=== PATIENT | female | born 1955 | race Caucasian/White ===

== ENCOUNTER → 2017-11-10 | Outpatient (CLI) | payer OTHER ==
[2016-08-23 10:40] VITALS: BP 136/68
[~2017-11-10] MED LIST: ASPI-630 PO; ASPI325T8 PO; CARV12.52 PO; FLUC150T PO; HYDR12.53 PO; INSU100C4 SQ; INSU100V8 SQ; LISI1TAB5 PO; NITR100C62 PO; RANI150C PO
--- NOTE | 2017-11-11 13:42 | RAD ---
History: Routine Screening. Technique: Bilateral digital mammographic routine views were obtained with CAD - computer aided detection. Comparison: 05/17/2010, 11/13/2009, 11/05/2009, 11/05/2004 Findings: Breast Tissue Density A : The breast tissue is predominately fatty replaced. There are no suspicious masses, microcalcifications or areas of architectural distortion. A focal asymmetry in the upper, outer right breast is stable to at least 11/05/2009. Impression: Negative mammogram. BI-RADS Category 2: Benign. Recommendation: In the absence of new clinical symptoms or change in physical exam, annual screening mammography is recommended. A mammogram does not have 100% sensitivity and therefore a negative imaging study should not delay further work up of a suspicious abnormality. The patient will receive a letter with the results in the mail. Patient information is entered into the reminder system with a target due date for the next screening mammogram. The patient will receive a reminder. "Our facility is accredited by the [employer] Mammography [employer]."
== END | disposition home or self-care (01) ==
LOC: MAMMO 15:21
PROVIDERS: ATTEND Family Medicine
DX: Z12.31 Encounter for screening mammogram for malignant neoplasm of breast (principal); I11.0 Hypertensive heart disease with heart failure; I50.9 Heart failure, unspecified; E11.9 Type 2 diabetes mellitus without complications; I25.10 Atherosclerotic heart disease of native coronary artery without angina pectoris; K21.9 Gastro-esophageal reflux disease without esophagitis; Z87.891 Personal history of nicotine dependence
CPT/HCPCS: 77067

== ENCOUNTER → 2019-04-08 | Outpatient (CLI) | payer OTHER, MEDICAID ==
[2016-08-23 10:40] VITALS: BP 136/68
[~2019-04-08] MED LIST changes: +CARV12.511 PO; -CARV12.52 PO; -HYDR12.53 PO; +HYDR12.575 PO; +LISI1TAB19 PO; -LISI1TAB5 PO
--- NOTE | 2019-04-08 15:33 | RAD ---
Bilateral lower extremity arterial ultrasound History: Poor circulation in extremities, diabetes, cold feet Findings: Multiple grayscale, color, and duplex spectral analysis sonographic images were acquired of the lower extremity arteries bilaterally. There are no previous similar exams. No vessel occlusion is demonstrated. However there are mostly biphasic waveforms bilaterally other than monophasic waveforms of the distal posterior tibial arteries bilaterally. There is scattered plaque. There are apparently some collateral vessels in the region of the superficial femoral arteries bilaterally. There are more elevated velocities in the common femoral arteries greater on the right, left popliteal artery, and right peroneal artery. Velocities in cm/sec: RIGHT Common femoral artery 231 Profunda femoris artery 162 Proximal SFA 134 Mid SFA 125 Distal SFA 102 Popliteal artery 139 Posterior tibial artery 98 proximally and 45 distally Peroneal artery 180 Anterior tibial artery 34 Dorsalis pedis artery 73 LEFT: Common femoral artery 165 Profunda femoris artery 53 Proximal SFA 120 Mid SFA 90 Distal SFA 92 Popliteal artery 210 Posterior tibial artery 70 proximally and 27 distally Peroneal artery 61 Anterior tibial artery 75 Dorsalis pedis artery 69 Impression: 1. No vessel occlusion is demonstrated. However there are greater velocities such as of the common femoral arteries greater on the right which may be due to more proximal stenoses. There are also elevated velocities of the left popliteal artery and right peroneal artery which may be due to underlying stenoses. There is scattered plaque. There are some collateral vessels in the region of the superficial femoral arteries bilaterally. Electronically signed by: Omid Porter MD (04/08/2019 3:30 PM) [id number]
== END | disposition home or self-care (01) ==
LOC: US 13:59
PROVIDERS: ATTEND Family Medicine
DX: I70.293 Other atherosclerosis of native arteries of extremities, bilateral legs (principal)
CPT/HCPCS: 93925

== ENCOUNTER → 2019-04-13 | Outpatient (CLI) | payer OTHER, MEDICAID ==
[2016-08-23 10:40] VITALS: BP 136/68
--- NOTE | 2019-04-13 19:08 | RAD ---
History: Routine Screening. Technique: Bilateral digital mammographic routine views were obtained with CAD - computer aided detection. Comparison: November 10, 2017. Findings: Breast Tissue Density A : The breast tissue is predominately fatty replaced. There are no suspicious masses, microcalcifications or areas of architectural distortion. Impression: Negative mammogram. BI-RADS Category 1: Negative. Normal interval followup. . A mammogram does not have 100% sensitivity and therefore a negative imaging study should not delay further work up of a suspicious abnormality. The patient will receive a letter with the results in the mail. Patient information is entered into the reminder system with a target due date for the next screening mammogram. The patient will receive a reminder. "Our facility is accredited by the [employer] Mammography [employer]." BI-RADS 1 -- negative findings (within normal)
== END | disposition home or self-care (01) ==
LOC: MAMMO 14:18
PROVIDERS: ATTEND Family Medicine
DX: Z12.31 Encounter for screening mammogram for malignant neoplasm of breast (principal)
CPT/HCPCS: 77067

== ENCOUNTER 2021-05-15 14:49 | Inpatient (IN) | payer OTHER, MEDICAID ==
[~2021-05-15] VITALS: Ht 152.4 cm; Wt 127.5 kg
[~2021-05-15 14:49] MED LIST changes: -LISI1TAB19 PO; +LISI1TAB37 PO
--- NOTE | 2021-05-15 15:00 | PHYS DOC ---
Past Medical History Past Medical History: Diabetes-Type II, Hypertension, [place], Stroke, Other Additional Past Medical Histor: LUPUS Past Surgical History: Hysterectomy, Other Additional Past Surgical Histo: CARDIAC CATH Smoking Status: Current Every Day Smoker Alcohol Use: None Drug Use: None General Adult EDM: Chief Complaint: LOWER EXT PAIN HPI: HPI: Patient is a 66 year old female who presents with multiple, vague complaints. She is an incredibly poor historian. She was sent here by EMS from her primary care physician's office. Her primary care doctor was concerned about "urosepsis.", Currently the patient had some hypotension in the office, she is not manifesting hypotension here. The patient has not seen Dr. Rodriguez in over a year. She presented for evaluation of her chronic health conditions, multiple open wounds and pick mckeon on her body, follow-up for reported "lupus" which was diagnosed at [facility] sometime ago, as well as follow-up for her diabetes mellitus. The patient does not mention this, but her reports for the past couple of nights the patient seems to have had abnormal "shaking episodes" where and the patient's thought she was having seizures. It is unclear if these were tonic-clonic movements, it is unknown if she lost co nsciousness, it is unknown if she sustained any trauma or injury during these times. The patient does not recall these episodes. Her reports for several months, almost a year, she has had progressively worsening memory problems and forgetfulness. No reported fall, head injury reported. No reported syncope. The patient denies chest pain, cough, dyspnea, Jose J pain, nausea, vomiting. She has some chronic urinary incontinence and urgency, unchanged currently. She reports that she is unable to walk, has not been on a walk for several days. She normally ambulates on her own, per her report but she has been lying in bed for the last several days. She has multiple scratch mckeon and wounds on her abdomen, back, neck and arms and legs, and she reports that she intentionally picks and scratches at these. She is unable to bathe herself, she is unable to reach her feet to groom her toenails, she is not able to change her clothing without help of her . She indicates that her does not feel that he is able to assist with ADLs. Review of Systems: Review of Systems: Constitutional: Denies fever or chills. [] Eyes: Denies change in visual acuity. [] HENT: Denies nasal congestion or sore throat. [] Respiratory: Denies cough or shortness of breath. [] Cardiovascular: Denies chest pain or edema. [] GI: Denies abdominal pain, nausea, vomiting, diarrhea : Denies dysuria. [] Musculoskeletal: Denies back pain or joint pain. [] Integument: Multiple scabs, multiple wounds and abrasions Neurologic: Denies headache, focal weakness, numbness or tingling. Forgetfulness. No loss of consciousness, no head injury. Seizure activity reported by the patient's . Psychiatric: Anxiety Heart Score: C/O Chest Pain: No Risk Factors: Risk Factors: DM, Current or recent (<one month) smoker, HTN, HLP, family history of CAD, obesity. Risk Scores: Score 0 - 3: 2.5% MACE over next 6 weeks - Discharge Home Score 4 - 6: 20.3% MACE over next 6 weeks - Admit for Clinical Observation Score 7 - 10: 72.7% MACE over next 6 weeks - Early Invasive Strategies Allergies: Allergies: Allergies Coded Allergies Type Severity Reaction Last Updated Verified Sulfa (Sulfonamide Antibiotics) Allergy Severe Rash 08/22/16 Yes Iodinated Contrast Media Allergy Intermediate 01/14/14 Yes lisinopril Adverse Reaction Severe Anaphylaxis 08/22/16 Yes codeine Adverse Reaction Intermediate Nausea and Vomiting 08/22/16 Yes Physical Exam: PE: Constitutional: Well developed, well nourished, no acute distress, appears older than stated age. She is chronically ill-appearing. She is disheveled, malodorous. HENT: Normocephalic, atraumatic, oropharynx is patent and clear, poor dentition, mucous membranes are moist, TMs are clear bilaterally, nares are patent without rhinorrhea epistaxis. Eyes: PERRL, EOMI, conjunctiva normal, no discharge. No nystagmus. No scleral icterus. Neck: Normal range of motion, no tenderness, supple, no stridor. Achy midline, no meningismus. Cardiovascular:Heart rate regular rhythm, +2 radial and +2 posterior tibial pulses bilaterally Lungs & Thorax: Bilateral breath sounds clear to auscultation [] Abdomen: Abdomen is obese, soft, nondistended, no palpable pulsatile mass, mu ltiple scratches and abrasions on the abdominal wall. No tenderness to palpation. Skin: Multiple scabs, linear, circular abrasions and pick mckeon noted on the patient's face, neck, chest, abdomen, arms and legs. No purulence, no fluc tuance, no drainage, no bleeding, no erythema, no tenderness. Back: No tenderness, no deformity. Extremities: No tenderness, no cyanosis, no clubbing, ROM intact, bilateral lower extremity, symmetric nonpitting edema. Fuhs lower extremity soft tissue tenderness. Compartments are soft. No pain or tenderness out of proportion to exam. Neurologic: She is awake, alert, oriented to person, place, and she does not know the year. She gets confused answers incorrectly regarding her date of . She follows commands. No facial asymmetry, cranial nerves II through XII grossly intact. She has bilateral symmetric guyline operator strength. Sensation is grossly intact. Unable to ambulate. No obvious limb ataxia. Speech is fluent. Psychologic: Affect is bizarre, she is anxious, she is cooperative and pleasant. EKG: EKG: EKG is interpreted at 1626 Rhythm is sinus Rate is 59 bpm [place] is left No STEMI Radiology/Procedures: Radiology/Procedures: IMAGING REPORT Signed PATIENT: SERGEY REED SACCOUNT: [id number] : 1955 LOCATION: ER AGE: 66 SEX: F EXAM STATUS: REG ER ORD. PHYSICIAN: CHARANJIT TANNER DO REASON: LE pain, swelling PROCEDURE: VENOUS LOWER EXT BILATERAL EXAM: Bilateral lower extremity venous Doppler sonogram. HISTORY: Pain and swelling. TECHNIQUE: Mc scale and color Doppler sonographic evaluation of the bilateral lower extremity veins with spectral waveform analysis was performed. FINDINGS: The exam is limited due to body habitus. The superficial femoral veins are mildly obscured. The posterior tibial veins are completely excluded. There is normal color flow, normal compressibility and there are normal spectral waveforms in the common femoral, popliteal and greater saphenous veins. IMPRESSION: Significantly limited exam due to body habitus. The superficial femoral veins are predominantly obscured and the posterior tibial veins are completely obscured. There is no venous thrombosis within the remainder of the visualized veins. Electronically signed by: Maribell Collado MD (05/15/2021 4:31 PM) [id number] DICTATED and SIGNED BY: MARIBELL COLLADO MD DATE: 05/15/21 [id number] 0 IMAGING REPORT Signed PATIENT: SERGEY REED: [id number] : 1955 LOCATION: ER AGE: 66 SEX: F EXAM STATUS: REG ER ORD. PHYSICIAN: CHARANJIT TANNER DO REASON: weakness PROCEDURE: CT HEAD WO CONTRAST EXAM: Head CT without contrast. HISTORY: Weakness. TECHNIQUE: Computed tomographic images of the head were obtained without contrast. *One or more of the following individualized dose reduction techniques were utilized for this examination: 1. Automated exposure control. 2. Adjustment of the mA and/or kV according to patient size. 3. Use of iterative reconstruction technique. COMPARISON: None. FINDINGS: There is no acute or subacute extra-axial or intraparenchymal hemorrhage. There is no mass effect or midline shift. There is no hydrocephalus. There are areas of decreased attenuation within the cerebral white matter, nonspecific and likely related to chronic small vessel disease. There are small chronic infarct within the left caudate nucleus and putamen. The visualized portions of the orbits, paranasal sinuses and mastoid air cells are unremarkable. No suspicious calvarial lesion is seen. IMPRESSION: 1. No acute intracranial finding. MRI is more sensitive for acute infarction. 2. Bilateral cerebral white matter changes, likely due to chronic small vessel disease. 3. Small chronic infarcts within the left basal ganglia. Electronically signed by: Maribell Collado MD (05/15/2021 3:50 PM) [id number] DICTATED and SIGNED BY: MARIBELL COLLADO MD DATE: 05/15/21 [id number] 0 IMAGING REPORT Signed PATIENT: SERGEY REED: [id number] : 1955 LOCATION: ER AGE: 66 SEX: F EXAM STATUS: REG ER ORD. PHYSICIAN: CHARANJIT TANNER DO REASON: weakness PROCEDURE: PORTABLE CHEST 1V EXAM: Chest, single view. HISTORY: Weakness COMPARISON: 08/20/2016 FINDINGS: A frontal view of the chest is obtained. There is no infiltrate, pleural effusion or pneumothorax. There is a stable prominent cardiac silhouette. IMPRESSION: No acute pulmonary finding. Electronically signed by: Maribell Collado MD (05/15/2021 3:57 PM) [id number] DICTATED and SIGNED BY: MARIBELL COLLADO MD DATE: 05/15/21 [id number] 0 Course & Med Decision Making: Course & Med Decision Making Pertinent Labs and Imaging studies reviewed. (See chart for details) I discussed the findings, differential diagnosis and plan of care with the patient. It took several hours to obtain blood work, thus the delay in definitive disposition placement. Imaging studies are unremarkable. She does not appear to be clinically septic, blood pressure has been stable. She has no physical complaints other than feeling like her legs are weak and painful. No DVT noted on ultrasound. CT head is unremarkable. She does appear to be persistently can confused, and she forgets multiple conversations have had with her when I enter her room and discussed the findings. I explained my recommendation for admission, explained this to the patient's as well as to the patient. She is comfortable with this plan. She is excepted for admission by Dr. Martinez. Ana Disclaimer: Ana Disclaimer: This electronic medical record was generated, in whole or in part, using a voice recognition dictation system. Departure Departure Impression: Primary Impression: Generalized weakness Additional Impressions: Failure to thrive Multiple wounds of skin Memory loss Unable to ambulate Disposition: ADMITTED INPATIENT Admitting Physician: ROZINA (Dr. Martinez) Condition: STABLE Referrals: PAVAN GRADY MD (PCP) CHARANJIT TANNER DO May 15, 2021 15:00
[2021-05-15] MEDS ORDERED: IV NORMAL SALINE 1000ML BAG 1,000 ML IV ONE ×2 (15:15→19:15)
--- NOTE | 2021-05-15 15:53 | RAD ---
EXAM: Head CT without contrast. HISTORY: Weakness. TECHNIQUE: Computed tomographic images of the head were obtained without contrast. *One or more of the following individualized dose reduction techniques were utilized for this examina tion: 1. Automated exposure control. 2. Adjustment of the mA and/or kV according to patient size. 3. Use of iterative reconstruction technique. COMPARISON: None. FINDINGS: There is no acute or subacute extra-axial or intraparenchymal hemorrhage. There is no mass effect or midline shift. There is no hydrocephalus. There are areas of decreased attenuation within the cerebral white matter, nonspecific and likely rel ated to chronic small vessel disease. There are small chronic infarct within the left caudate nucleus and putamen. The visualized portions of the orbits, paranasal sinuses and mastoid air cells are unremarkable. No s uspicious calvarial lesion is seen. IMPRESSION: 1. No acute intracranial finding. MRI is more sensitive for acute infarction. 2. Bilateral cerebral white matter changes, likely due to chronic small vessel disease. 3. Small chronic infarcts within the left basal ganglia. Electronically signed by: Maribell Boles MD (05/15/2021 3:50 PM) [id number]
--- NOTE | 2021-05-15 15:59 | RAD ---
EXAM: Chest, single view. HISTORY: Weakness COMPARISON: 08/20/2016 FINDINGS: A frontal view of the chest is obtained. There is no infiltrate, pleural effusion or pneumo thorax. There is a stable prominent cardiac silhouette. IMPRESSION: No acute pulmonary finding. Electronically signed by: Maribell Boles MD (05/15/2021 3:57 PM) [id number]
[2021-05-15 16:13] LABS: BILIRUBIN,URINE NEGATIVE (NEG); CLARITY,URINE CLEAR; COLOR,URINE YELLOW; NITRITE,URINE NEGATIVE (NEG); PH,URINE 7.5 (<5.0-8.0); PROTEIN,URINE 100 mg/dL (NEG-TRACE)
[2021-05-15 16:14] LABS: BACTERIA,URINE FEW /HPF (0-FEW); WBC,URINE OCC /HPF (0-4)
--- NOTE | 2021-05-15 16:33 | RAD ---
EXAM: Bilateral lower extremity venous Doppler sonogram. HISTORY: Pain and swelling. TECHNIQUE: Mc scale and color Doppler sonographic evaluation of the bilateral lower extremity veins with spectral waveform analysis was performed. FINDINGS: The exam is limited due to body habitus. The superficial femoral veins are mildly obscured. The posterior tibial veins are completely excluded. There is normal color flow, normal compressibili ty and there are normal spectral waveforms in the common femoral, popliteal and greater saphenous vei ns. IMPRESSION: Significantly limited exam due to body habitus. The superficial femoral veins are predomi nantly obscured and the posterior tibial veins are completely obscured. There is no venous thrombosis within the remainder of the visualized veins. Electronically signed by: Maribell Boles MD (05/15/2021 4:31 PM) [id number]
[2021-05-15 17:43] LABS: CALCIUM 8.7 mg/dL (8.5-10.1); CREATININE 1.3 mg/dL (0.6-1.0); GFR 40.7; POTASSIUM 4.9 mmol/L (3.5-5.1)
[2021-05-15 17:50] LABS: ALBUMIN 3.1 g/dL (3.4-5.0); ALBUMIN/GLOBULIN RATIO 0.7 (1.0-1.7); PHOSPHORUS 3.6 mg/dL (2.6-4.7); TOTAL BILIRUBIN 0.3 mg/dL (0.2-1.0); TOTAL PROTEIN 7.5 g/dL (6.4-8.2)
[2021-05-15 18:22] LABS: BASO % 0 % (0-3); EOS % 0 % (0-3); HEMATOCRIT 42.6 % (36.0-47.0); HEMOGLOBIN 14.1 g/dL (12.0-15.5); LYMPH # 1.1 x10^3/uL (1.0-4.8); LYMPH % 11 % (24-48); MEAN CORPUSCULAR HEMOGLOBIN 30 pg (25-35); MEAN CORPUSCULAR HGB CONC 33 g/dL (31-37); MEAN CORPUSCULAR VOLUME 91 fL (79-100); MONO # 0.8 x10^3/uL (0.0-1.1); MONO % 7 % (0-9); NEUT # 8.5 x10^3/uL (1.8-7.7); NEUT % 82 % (31-73); PLATELET COUNT 265 x10^3/uL (140-400); RED CELL DISTRIBUTION WIDTH 14.6 % (11.5-14.5); WHITE BLOOD COUNT 10.4 x10^3/uL (4.0-11.0)
[2021-05-15] MEDS ORDERED: ONDANSETRON PF 4 MG/2 ML VIAL. IVP PRN (19:15)
[2021-05-15 21:00] VITALS: BP 146/68
[2021-05-15 23:16] VITALS: BP 130/46
[2021-05-16 03:11] VITALS: BP 129/49
[2021-05-16 07:00] VITALS: BP 129/53
--- NOTE | 2021-05-16 08:28 | EKG ---
[facility] [address] [place] [address] Test Date: 2021-05-15 Test Time: 16:20:20 Pat Name: SERGEY REED Department: Room: 584 1 Gender: F Space Engineer: : 1955 Requested By: CHARANJIT TANNER Order Number: [id number] Reading MD: Bahman Stratton Measurements Intervals [place] Rate: 59 P: 0 [place]: 170 QRS: -46 QRSD: 122 T: 44 QT: 486 QTc: 481 Interpretive Statements SINUS RHYTHM ABNORMAL LEFT AXIS DEVIATION LEFT ANTERIOR FASCICULAR BLOCK INCOMPLETE RIGHT BUNDLE BRANCH BLOCK LVH WITH REPOLARIZATION ABNORMALITY ABNORMAL ECG Electronically Signed On 05-19-2021 14:12:14 [employer]LLABORATIVE TEACHER by Bahman Stratton
--- NOTE | 2021-05-16 09:37 | PDOC1 ---
History and Physical Date of Service: DOS: DATE: 05/16/21 TIME: 09:18 Chief Complaint: Chief Complain: Lower extremity pain History of Present Illness: HPI: 66-year-old female who presents with multiple complaints but mainly for lower extremity pain. She is a poor historian and is sent here by EMS from PCPs office. PCP was concerned for UTI. Patient states that she was diagnosed with lupus 10 years ago. According to the patient has been having in the past couple nights some shaking episodes and potential seizures. Patient is unable to recall these episodes. Patient's also reports worsening memory problems and forgetfulness for the past year. No reported fall, head injury reported. No reported syncope. She has some chronic urinary incontinence and urgency, unchanged currently. She reports that she is unable to walk, has not been on a walk for several days. She normally ambulates on her own, per her report but she has been lying in bed for the last several days. She has multiple scratch mckeon and wounds on her abdomen, back, neck and arms and legs, and she reports that she intentionally picks and scratches at these. She is unable to bathe herself, she is unable to reach her feet to groom her toenails, she is not able to change her clothing without help of her . She indicates that her does not feel that he is able to assist with ADLs. Of note, patient states that she has never taken steroids or Plaquenil for her lupus. She only complains of itchiness throughout her whole body and lower extremity pain. Past Medical/Surgical History: PMH/PSH: Past Medical History: Diabetes-Type II, Hypertension, DC, Stroke, LUPUS Past Surgical History: Hysterectomy CARDIAC CATH Allergies: Allergies: Coded Allergies: Sulfa (Sulfonamide Antibiotics) (Verified Allergy, Severe, Rash, 08/22/16) rash, shortness of breath lisinopril (Verified Allergy, Severe, Anaphylaxis, 05/16/21) angioedema Iodinated Contrast Media (Verified Allergy, Intermediate, 01/14/14) codeine (Verified Adverse Reaction, Intermediate, Nausea and Vomiting, 08/22/16) also "head heaviness" Family History: Family History: Reviewed with no relative findings in the chart Social History: Social History: Smoking Status: Current Every Day Smoker Alcohol Use: None Drug Use: None Current Medications: Current Medications Current Medications Sodium Chloride 1,000 ml @ 1,000 mls/hr 1X ONCE IV Last administered on 05/15/21at 16:14; Start 05/15/21 at 15:15; Stop 05/15/21 at 16:14; Status DC Ondansetron HCl (Zofran) 4 mg PRN Q8HRS PRN IVP NAUSEA/VOMITING; Start 05/15/21 at 19:15; Stop 05/16/21 at 19:14 Sodium Chloride 1,000 ml @ 75 mls/hr 1X ONCE IV Last administered on 05/15/21at 20:00; Start 05/15/21 at 19:15; Stop 05/16/21 at 08:34; Status DC Active Scripts Active Hydrochlorothiazide Capsule (Hydrochlorothiazide) 12.5 Mg Capsule 1 Cap PO DAILY Diflucan (Fluconazole) 150 Mg Tablet 1 Tab PO ONCE Macrobid 100 Mg Capsule (Nitrofurantoin Monohyd/M-Cryst) 100 Mg Capsule 1 Cap PO BID Ranitidine Hcl 150 Mg Capsule 1 Cap PO BID Reported Aspirin 325 Mg Tablet 1 Tab PO DAILY Carvedilol 12.5 Mg Tablet 1 Tab PO BID Lantus (Insulin Glargine,Hum.rec.anlog) 100 Unit/1 Ml Vial 80 Unit SQ HS Novolog (Insulin Aspart) 100 Unit/1 Ml Cartridge 30 Unit SQ TIDWMEALS ROS: Review of Systems Review of System REVIEW OF SYSTEMS: GENERAL: Positive for anxiety SKIN: No bruising, hair changes or rashes. EYES: No blurred, double or loss of vision. NOSE AND THROAT: No history of nosebleeds, hoarseness or sore throat. HEART: No history of palpitations, chest pain or shortness of breath on exertion. LUNGS: Denies cough, hemoptysis, wheezing or shortness of breath. GASTROINTESTINAL: Denies changes in appetite, nausea, vomiting, diarrhea or constipation. GENITOURINARY: No history of frequency, urgency, hesitancy or nocturia. NEUROLOGIC: Denies history of numbness, tingling, or tremor. PSYCHIATRIC: Positive for anxiety and forgetfulness ENDOCRINE: No history of heat or cold intolerance, polyuria or polydipsia. EXTREMITIES: Positive for lower extremity pain Physical Exam: Vital Signs: Vital Signs Date Time Temp Pulse Resp B/P (MAP) Pulse Ox O2 Delivery O2 Flow Rate FiO2 05/16/21 03:11 98.6 65 18 129/49 (75) 94 Room Air 98.6 Physcial Exam: General: She is chronically ill-appearing. She is disheveled, malodorous. HEENT: Pupils equally round and reactive to light, EOMI, no discharge, normal conjunctiva Neck: Supple, no nuchal rigidity, no JVD, trachea midline, no tenderness Cardiac: RRR, no murmurs, no gallops, no rubs Chest/Lungs: CTAB, no wheeze, no rhonchi, no crackles Abdomen: soft, non-distended, no guarding, no peritoneal signs, non-tender Back: No tenderness Extremities: Bilaeral lower extremity soft tissue tenderness. Compartments are soft. No pain or tenderness out of proportion to exam. Multiple excoriations throughout her body. Small open lesions. Neuro: Alert and oriented x 4, no focal deficits, normal speech Labs: Labs: Laboratory Tests Test 05/15/21 15:23 05/15/21 17:20 05/15/21 18:09 05/15/21 20:42 Urine Collection Type U cath Urine Color Yellow Urine Clarity Clear Urine pH 7.5 (<5.0-8.0) Urine Specific [place] 1.010 (1.000-1.030) Urine Protein 100 mg/dL (NEG-TRACE) Urine Glucose (UA) Negative mg/dL (NEG) Urine Ketones (Stick) Trace mg/dL (NEG) Urine Blood Large (NEG) Urine Nitrite Negative (NEG) Urine Bilirubin Negative (NEG) Urine Urobilinogen Dipstick 1.0 mg/dL (0.2 mg/dL) Urine Leukocyte Esterase Negative (NEG) Urine RBC 11-20 /HPF (0-2) Urine WBC Occ /HPF (0-4) Urine Squamous Epithelial Cells Mod /LPF Urine Bacteria Few /HPF (0-FEW) Sodium Level 141 mmol/L (136-145) Potassium Level 4.9 mmol/L (3.5-5.1) Chloride Level 102 mmol/L (98-107) Carbon Dioxide Level 27 mmol/L (21-32) Anion Gap 12 (6-14) Blood Urea Nitrogen 18 mg/dL (7-20) Creatinine 1.3 mg/dL (0.6-1.0) Estimated GFR (Cockcroft-Gault) 40.7 BUN/Creatinine Ratio 14 (6-20) Glucose Level 91 mg/dL (70-99) Calcium Level 8.7 mg/dL (8.5-10.1) Phosphorus Level 3.6 mg/dL (2.6-4.7) Magnesium Level 2.0 mg/dL (1.8-2.4) Total Bilirubin 0.3 mg/dL (0.2-1.0) Aspartate Amino Transf (AST/SGOT) 35 U/L (15-37) Alanine Aminotransferase (ALT/SGPT) 29 U/L (14-59) Alkaline Phosphatase 139 U/L (46-116) Creatine Kinase 111 U/L (26-192) OW-Owe-E-Type Natriuretic Peptide 747 pg/mL (0-124) Total Protein 7.5 g/dL (6.4-8.2) Albumin 3.1 g/dL (3.4-5.0) Albumin/Globulin Ratio 0.7 (1.0-1.7) White Blood Count 10.4 x10^3/uL (4.0-11.0) Red Blood Count 4.70 x10^6/uL (3.50-5.40) Hemoglobin 14.1 g/dL (12.0-15.5) Hematocrit 42.6 % (36.0-47.0) Mean Corpuscular Volume 91 fL (79-100) Mean Corpuscular Hemoglobin 30 pg (25-35) Mean Corpuscular Hemoglobin Concent 33 g/dL (31-37) Red Cell Distribution Width 14.6 % (11.5-14.5) Platelet Count 265 x10^3/uL (140-400) Neutrophils (%) (Auto) 82 % (31-73) Lymphocytes (%) (Auto) 11 % (24-48) Monocytes (%) (Auto) 7 % (0-9) Eosinophils (%) (Auto) 0 % (0-3) Basophils (%) (Auto) 0 % (0-3) Neutrophils # (Auto) 8.5 x10^3/uL (1.8-7.7) Lymphocytes # (Auto) 1.1 x10^3/uL (1.0-4.8) Monocytes # (Auto) 0.8 x10^3/uL (0.0-1.1) Eosinophils # (Auto) 0.0 x10^3/uL (0.0-0.7) Basophils # (Auto) 0.0 x10^3/uL (0.0-0.2) Lactic Acid Level 1.3 mmol/L (0.4-2.0) Troponin I High Sensitivity 26 ng/L (4-50) Procalcitonin 0.14 ng/mL (0.00-0.10) Glucose (Fingerstick) 64 mg/dL (70-99) Test 05/15/21 22:01 05/16/21 07:50 Glucose (Fingerstick) 113 mg/dL (70-99) 67 mg/dL (70-99) Laboratory Tests Test 05/15/21 15:23 05/15/21 17:20 05/15/21 18:09 05/15/21 20:42 Urine Collection Type U cath Urine Color Yellow Urine Clarity Clear Urine pH 7.5 (<5.0-8.0) Urine Specific [place] 1.010 (1.000-1.030) Urine Protein 100 mg/dL (NEG-TRACE) Urine Glucose (UA) Negative mg/dL (NEG) Urine Ketones (Stick) Trace mg/dL (NEG) Urine Blood Large (NEG) Urine Nitrite Negative (NEG) Urine Bilirubin Negative (NEG) Urine Urobilinogen Dipstick 1.0 mg/dL (0.2 mg/dL) Urine Leukocyte Esterase Negative (NEG) Urine RBC 11-20 /HPF (0-2) Urine WBC Occ /HPF (0-4) Urine Squamous Epithelial Cells Mod /LPF Urine Bacteria Few /HPF (0-FEW) Sodium Level 141 mmol/L (136-145) Potassium Level 4.9 mmol/L (3.5-5.1) Chloride Level 102 mmol/L (98-107) Carbon Dioxide Level 27 mmol/L (21-32) Anion Gap 12 (6-14) Blood Urea Nitrogen 18 mg/dL (7-20) Creatinine 1.3 mg/dL (0.6-1.0) Estimated GFR (Cockcroft-Gault) 40.7 BUN/Creatinine Ratio 14 (6-20) Glucose Level 91 mg/dL (70-99) Calcium Level 8.7 mg/dL (8.5-10.1) Phosphorus Level 3.6 mg/dL (2.6-4.7) Magnesium Level 2.0 mg/dL (1.8-2.4) Total Bilirubin 0.3 mg/dL (0.2-1.0) Aspartate Amino Transf (AST/SGOT) 35 U/L (15-37) Alanine Aminotransferase (ALT/SGPT) 29 U/L (14-59) Alkaline Phosphatase 139 U/L (46-116) Creatine Kinase 111 U/L (26-192) ZG-Gzg-Q-Type Natriuretic Peptide 747 pg/mL (0-124) Total Protein 7.5 g/dL (6.4-8.2) Albumin 3.1 g/dL (3.4-5.0) Albumin/Globulin Ratio 0.7 (1.0-1.7) White Blood Count 10.4 x10^3/uL (4.0-11.0) Red Blood Count 4.70 x10^6/uL (3.50-5.40) Hemoglobin 14.1 g/dL (12.0-15.5) Hematocrit 42.6 % (36.0-47.0) Mean Corpuscular Volume 91 fL (79-100) Mean Corpuscular Hemoglobin 30 pg (25-35) Mean Corpuscular Hemoglobin Concent 33 g/dL (31-37) Red Cell Distribution Width 14.6 % (11.5-14.5) Platelet Count 265 x10^3/uL (140-400) Neutrophils (%) (Auto) 82 % (31-73) Lymphocytes (%) (Auto) 11 % (24-48) Monocytes (%) (Auto) 7 % (0-9) Eosinophils (%) (Auto) 0 % (0-3) Basophils (%) (Auto) 0 % (0-3) Neutrophils # (Auto) 8.5 x10^3/uL (1.8-7.7) Lymphocytes # (Auto) 1.1 x10^3/uL (1.0-4.8) Monocytes # (Auto) 0.8 x10^3/uL (0.0-1.1) Eosinophils # (Auto) 0.0 x10^3/uL (0.0-0.7) Basophils # (Auto) 0.0 x10^3/uL (0.0-0.2) Lactic Acid Level 1.3 mmol/L (0.4-2.0) Troponin I High Sensitivity 26 ng/L (4-50) Procalcitonin 0.14 ng/mL (0.00-0.10) Glucose (Fingerstick) 64 mg/dL (70-99) Test 05/15/21 22:01 05/16/21 07:50 Glucose (Fingerstick) 113 mg/dL (70-99) 67 mg/dL (70-99) Images: Images PROCEDURE: PORTABLE CHEST 1V EXAM: Chest, single view. HISTORY: Weakness COMPARISON: 08/20/2016 FINDINGS: A frontal view of the chest is obtained. There is no infiltrate, pleural effusion or pneumothorax. There is a stable prominent cardiac silhouette. IMPRESSION: No acute pulmonary finding. PROCEDURE: CT HEAD WO CONTRAST EXAM: Head CT without contrast. HISTORY: Weakness. TECHNIQUE: Computed tomographic images of the head were obtained without contrast. *One or more of the following individualized dose reduction techniques were utilized for this examination: 1. Automated exposure control. 2. Adjustment of the mA and/or kV according to patient size. 3. Use of iterative reconstruction technique. COMPARISON: None. FINDINGS: There is no acute or subacute extra-axial or intraparenchymal hemorrha ge. There is no mass effect or midline shift. There is no hydrocephalus. There are areas of decreased attenuation within the cerebral white matter, nonspecific and likely related to chronic small vessel disease. There are small chronic infarct within the left caudate nucleus and putamen. The visualized portions of the orbits, paranasal sinuses and mastoid air cells are unremarkable. No suspicious calvarial lesion is seen. IMPRESSION: 1. No acute intracranial finding. MRI is more sensitive for acute infarction. 2. Bilateral cerebral white matter changes, likely due to chronic small vessel disease. 3. Small chronic infarcts within the left basal ganglia. PROCEDURE: VENOUS LOWER EXT BILATERAL EXAM: Bilateral lower extremity venous Doppler sonogram. HISTORY: Pain and swelling. TECHNIQUE: Mc scale and color Doppler sonographic evaluation of the bilateral lower extremity veins with spectral waveform analysis was performed. FINDINGS: The exam is limited due to body habitus. The superficial femoral veins are mildly obscured. The posterior tibial veins are completely excluded. There is normal color flow, normal compressibility and there are normal spectral waveforms in the common femoral, popliteal and greater saphenous veins. IMPRESSION: Significantly limited exam due to body habitus. The superficial femoral veins are predominantly obscured and the posterior tibial veins are completely obscured. There is no venous thrombosis within the remainder of the visualized veins. Assessment/Plan Assessment/Plan Acute encephalopathy, metabolic WHITLEY due to vasomotor nephropathy Multiple superficial skin lesions Symptomatic hypoglycemia History of hypertension History of lupus Admit to hospitalist service for further management Neuro consult Pending DOMI, dsDNA, TSH and B12 levels Continue IV fluids R ISS and Accu-Cheks We will hold off on long-acting insulin at this time. Resume Coreg for hypertension PT OT evaluation Wound care consult Would consider mupirocin for open lesions MRSA screen Lovenox for DVT prophylaxis Protonix GI prophylaxis Cardiac diet CODE STATUS full Discussed with RN and SW Disposition inpatient management as above DPOA: In addition to my E/M visit, advance care planning done with A total time of 20 minutes was spent from 10:00 to 1020 face to face in discussion regarding the patient's goals of care, CODE STATUS. Justifications for Admission Other Justification RIVKA LUTHER MD May 16, 2021 09:37
[2021-05-16] MEDS ORDERED: PROCHLORPERAZINE 10 MG/2 ML VIAL. IV PRN (09:45)
[2021-05-16] MEDS ORDERED: LORazepam 0.5 MG TABLET PO PRN (09:45)
[2021-05-16] MEDS ORDERED: diphenhydrAMINE 50 MG/ML VIAL IVP PRN (09:45)
[2021-05-16] MEDS ORDERED: ACETAMINOPHEN 325 MG TABLET. PO PRN (09:45)
[2021-05-16] MEDS ORDERED: DOCUSATE SODIUM 100 MG CAPSULE. PO PRN (09:45)
[2021-05-16] MEDS ORDERED: ZOLPIDEM 5 MG TABLET. PO PRN (09:45)
[2021-05-16] MEDS ORDERED: DEXTROSE 50% 25 GM / 50ML DISP.SYRIN. IV PRN ×2 (09:45→17:00)
[2021-05-16] MEDS ORDERED: ONDANSETRON PF 4 MG/2 ML VIAL. IVP PRN (09:45)
[2021-05-16] MEDS ORDERED: SENNOSIDES 8.6 MG TABLET PO PRN (09:45)
[2021-05-16] MEDS ORDERED: diphenhydrAMINE HCL 25 MG CAPSULE PO PRN ×2 (09:45)
[2021-05-16] MEDS: IV NORMAL SALINE 1000ML BAG 1,000 ML IV SCH ×2 (09:59→21:06)
[2021-05-16] MEDS: ENOXAPARIN 40 MG/0.4 ML SYRINGE. SQ SCH (09:59)
[2021-05-16 11:00] VITALS: BP 154/99
--- NOTE | 2021-05-16 11:15 | NUR ---
Wound Care Wound Type/Assessment: patient seen per wound care consult. see wound assessment. patient has multiple open/scabbed small areas all over the body. cleaned patient with the chlorhexidine wipes and left open to air. patient stated she gets to itching and then picking. Treatment Recommendations/Plan: Recommendations of cleansing patient with chlorhexidine wipes or Hibiclens soap, daily Education provided: educated patient about the POC Offloading surface/device: n/a Recommended Referrals/Tests: n/a Discharge Recommendations for dressings: Educated patient and RN about the POC and wound care is signing off at this time. please re-consult wound care if any change in the integumentary assessment.
--- NOTE | 2021-05-16 12:57 | NUR ---
SS following for discharge planning. SS reviewed pt chart and discussed with pt RN. Pt is from home with spouse and is currently on room air. PT/OT ordered. SS will continue to follow for discharge planning.
[2021-05-16 15:17] VITALS: BP 169/58
[2021-05-16] MEDS: CARVEDILOL 12.5 MG TABLET. PO SCH (16:56)
[2021-05-16] MEDS: INSULIN LISPRO 300 UNITS/3 ML VIAL. SQ SCH (16:57)
[2021-05-16] MEDS ORDERED: IV DEXTROSE 5% 250 ML BAG. IV PRN (17:00)
[2021-05-16 19:00] VITALS: BP 152/57
--- NOTE | 2021-05-16 21:30 | PDOC2 ---
CONSULT Date of Consult Date of Consult Neurology consultation DATE: 05/16/21 TIME: 21:20 Reason for Consult Reason for Consult: Weakness Referring Physician Referring Physician: Dr. Carlos Britt History of Present Illness Reason for Visit: Ingrid Gomez is a 66-year-old woman who presented to the emergency room at [facility] on May 15, 2021. She was having concerns of a rash all over her body that she picks at and causes wounds. It itches all the time. She is also had weakness in her legs. She reports about 10 years ago she had a stroke which caused weakness where she had to relearn walking. Ever since then her legs have been very weak. She also reports that she was diagnosed with lupus about 10 years ago at [facility]. She was given medication for treatment but then lost the bottle and the refills. She did not like going to so did not follow-up. She was only on the medicine for less than 1 year. She did not start to develop all the sores all over her body until about 2 months ago. She and her do sleep in the same bed and he does not have any sores. She does not venture out of her house. Her does all the shopping, cooking, cleaning and laundry. They mostly eat microwavable food. According to the record she was having some shaking episodes at night. The has also noted some memory problems over the last year with forgetfulness. There has not been a fall or head injury. Patient does not complain of pain. She is quite sedentary other than walking back to the bathroom, to the living room or kitchen. She often has to take a break because her legs become weak. She requires her 's help for some of her activities of daily living. Past Medical History Cardiovascular: CAD, CHF, HTN Pulmonary: No pertinent hx, COPD CENTRAL NERVOUS SYSTEM: CVA GI: No pertinent hx Heme/Onc: No pertinent hx Hepatobiliary: No pertinent hx Psych: No pertinent hx Rheumatologic: Other Infectious disease: No pertinent hx Renal/: No pertinent hx Endocrine: Diabetes Past Surgical History Past Surgical History: Hysterectomy, Other Family History Family History: Stroke, Other Social History ALCOHOL: none Drugs: None Current Problem List Problem List Problems Medical Problems: (1) Failure to thrive Status: Acute (2) Generalized weakness Status: Acute (3) Memory loss Status: Acute (4) Multiple wounds of skin Status: Acute (5) Unable to ambulate Status: Acute Current Medications Current Medications Current Medications Sodium Chloride 1,000 ml @ 1,000 mls/hr 1X ONCE IV Last administered on at 16:14; Start 05/15/21 at 15:15; Stop 05/15/21 at 16:14; Status DC Ondansetron HCl (Zofran) 4 mg PRN Q8HRS PRN IVP NAUSEA/VOMITING; Start 05/15/21 at 19:15; Stop 05/16/21 at 19:14; Status DC Sodium Chloride 1,000 ml @ 75 mls/hr 1X ONCE IV Last administered on 05/15/21at 20:00; Start 05/15/21 at 19:15; Stop 05/16/21 at 08:34; Status DC Sennosides (Senna) 17.2 mg PRN BID PRN PO CONSTIPATION; Start 05/16/21 at 09:45 Docusate Sodium (Colace) 100 mg PRN DAILY PRN PO HARD STOOLS; Start 05/16/21 at 09:45 Ondansetron HCl (Zofran) 4 mg PRN Q6HRS PRN IVP NAUSEA/VOMITING, 1st CHOICE; Start 05/16/21 at 09:45 Dextrose (Dextrose 50%-Water Syringe) 12.5 gm PRN Q15MIN PRN IV SEE COMMENTS; Start 05/16/21 at 09:45; Stop 05/16/21 at 18:23; Status DC Sodium Chloride 1,000 ml @ 100 mls/hr Q10H IV Last administered on 05/16/21at 21:06; Start 05/16/21 at 09:45 Acetaminophen (Tylenol) 650 mg PRN Q4HRS PRN PO TEMP OVER 100.4F OR MILD PAIN; Start 05/16/21 at 09:45 Lorazepam (Ativan) 0.5 mg PRN Q6HRS PRN PO ANXIETY / AGITATION; Start 05/16/21 at 09:45 Lorazepam (Ativan Inj) 0.25 mg PRN Q4HRS PRN IV ANXIETY / AGITATION; Start 05/16/21 at 09:45 Enoxaparin Sodium (Lovenox 40mg Syringe) 40 mg Q24H SQ Last administered on 05/16/21at 09:59; Start 05/16/21 at 10:00 Prochlorperazine Edisylate (Compazine) 10 mg PRN Q6HRS PRN IV NAUSEA/VOMITING, 2nd CHOICE; Start 05/16/21 at 09:45 Diphenhydramine HCl (Benadryl) 25 mg PRN Q6HRS PRN IVP ITCHING; Start 05/16/21 at 09:45 Diphenhydramine HCl (Benadryl) 25 mg PRN Q6HRS PRN PO ITCHING; Start 05/16/21 at 09:45 Diphenhydramine HCl (Benadryl) 25 mg PRN QHS PRN PO INSOMNIA, 1st CHOICE; Start 05/16/21 at 09:45 Zolpidem Tartrate (Ambien) 2.5 mg PRN QHS PRN PO INSOMNIA, 2nd CHOICE; Start 05/16/21 at 09:45 Carvedilol (Coreg) 12.5 mg BIDWMEALS PO Last administered on 05/16/21at 16:56; Start 05/16/21 at 17:00 Insulin Human Lispro (HumaLOG) 0-5 UNITS TIDWMEALS SQ Last administered on 05/16/21at 16:57; Start 05/16/21 at 17:00 Dextrose (Dextrose 50%-Water Syringe) 12.5 gm PRN Q15MIN PRN IV SEE COMMENTS; Start 05/16/21 at 17:00 Dextrose (Iv Dextrose 5%) 250 ml PRN Q15MIN PRN IV SEE COMMENTS; Start 05/16/21 at 17:00 Active Scripts Active Reported Carvedilol (Carvedilol) 12.5 Mg Tablet 1 Tab PO BID Lantus (Insulin Glargine,Hum.rec.anlog) 100 Unit/1 Ml Vial 80 Unit SQ HS Novolog (Insulin Aspart) 100 Unit/1 Ml Cartridge 30 Unit SQ TIDWMEALS Allergies Allergies: Coded Allergies: Sulfa (Sulfonamide Antibiotics) (Verified Allergy, Severe, Rash, 08/22/16) rash, shortness of breath lisinopril (Verified Allergy, Severe, Anaphylaxis, 05/16/21) angioedema Iodinated Contrast Media (Verified Allergy, Intermediate, 01/14/14) codeine (Verified Adverse Reaction, Intermediate, Nausea and Vomiting, 08/22/16) also "head heaviness" Physical Exam Physical Exam She was alert, awake and cooperative. The speech was fluent and clear. She had a good fund of recent and remote knowledge. Attention and concentration was intact. She was well-groomed and well-nourished. She was oriented to place, month, year and day of the week. She had difficulty spelling the word world backwards. She did not have word finding difficulty. Examination of the cran ial nerves revealed visual gordon were full to confrontation. Extraocular movements were intact. The eyes were conjugate. Pursuit movements were smooth and saccadic movements were without dysmetria. The pupils were 3 millimeters and reacted to light. There was no afferent pupillary defect. Funduscopic examination did not reveal papilledema, exudate or hemorrhage. Facial sensation was intact. The muscles of mastication and facial expression were powerful symmetrically. Hearing was intact to finger rub. The palate arch symmetrically and the tongue was midline with full range of motion. Sternocleidomastoid and trapezius were powerful bilaterally. Muscle bulk and tone was normal. There was no arm drift or abnormal movement. The power was full and symmetric in the upper extremities. She had some weakness with hip and knee flexion 4+/5. Dorsi and plantar flexion were fairly powerful. Reflexes were 1/4 at the arms and knees and absent at the ankles bilaterally.. The toes were downgoing bilaterally. Coordination testing with finger to nose, heel to bowers, fine motor and rapid alternating movements was well performed. The sensory examination was intact to pain, light touch, proprioception, graphesthesia, cold thermal and vibration except for some sensory shading in the feet. Vibratory sense was better perceived at the ankle. Sharp was better perceived proximal of the ankle. There was no extinction to double simultaneous stimulation. The gait was not testable. Auscultation of the carotid arteries did not reveal a bruit. Heart rhythm was regular without a murmur. Peripheral pulses are 2/4 at the wrists and feet. There was no edema or cyanosis of the extremities. She had sores on her arms and legs at different stages of healing. Her toenails were overgrown. Vitals VITALS Vital Signs Date Time Temp Pulse Resp B/P (MAP) Pulse Ox O2 Delivery O2 Flow Rate FiO2 05/16/21 19:00 98.6 68 20 152/57 (88) 94 Room Air 98.6 Labs Labs Laboratory Tests Test 05/15/21 15:23 05/15/21 17:20 05/15/21 18:09 05/15/21 20:42 Urine Collection Type U cath Urine Color Yellow Urine Clarity Clear Urine pH 7.5 (<5.0-8.0) Urine Specific [place] 1.010 (1.000-1.030) Urine Protein 100 mg/dL (NEG-TRACE) Urine Glucose (UA) Negative mg/dL (NEG) Urine Ketones (Stick) Trace mg/dL (NEG) Urine Blood Large (NEG) Urine Nitrite Negative (NEG) Urine Bilirubin Negative (NEG) Urine Urobilinogen Dipstick 1.0 mg/dL (0.2 mg/dL) Urine Leukocyte Esterase Negative (NEG) Urine RBC 11-20 /HPF (0-2) Urine WBC Occ /HPF (0-4) Urine Squamous Epithelial Cells Mod /LPF Urine Bacteria Few /HPF (0-FEW) Sodium Level 141 mmol/L (136-145) Potassium Level 4.9 mmol/L (3.5-5.1) Chloride Level 102 mmol/L (98-107) Carbon Dioxide Level 27 mmol/L (21-32) Anion Gap 12 (6-14) Blood Urea Nitrogen 18 mg/dL (7-20) Creatinine 1.3 mg/dL (0.6-1.0) Estimated GFR (Cockcroft-Gault) 40.7 BUN/Creatinine Ratio 14 (6-20) Glucose Level 91 mg/dL (70-99) Calcium Level 8.7 mg/dL (8.5-10.1) Phosphorus Level 3.6 mg/dL (2.6-4.7) Magnesium Level 2.0 mg/dL (1.8-2.4) Total Bilirubin 0.3 mg/dL (0.2-1.0) Aspartate Amino Transf (AST/SGOT) 35 U/L (15-37) Alanine Aminotransferase (ALT/SGPT) 29 U/L (14-59) Alkaline Phosphatase 139 U/L (46-116) Creatine Kinase 111 U/L (26-192) VS-Ntm-E-Type Natriuretic Peptide 747 pg/mL (0-124) Total Protein 7.5 g/dL (6.4-8.2) Albumin 3.1 g/dL (3.4-5.0) Albumin/Globulin Ratio 0.7 (1.0-1.7) White Blood Count 10.4 x10^3/uL (4.0-11.0) Red Blood Count 4.70 x10^6/uL (3.50-5.40) Hemoglobin 14.1 g/dL (12.0-15.5) Hematocrit 42.6 % (36.0-47.0) Mean Corpuscular Volume 91 fL (79-100) Mean Corpuscular Hemoglobin 30 pg (25-35) Mean Corpuscular Hemoglobin Concent 33 g/dL (31-37) Red Cell Distribution Width 14.6 % (11.5-14.5) Platelet Count 265 x10^3/uL (140-400) Neutrophils (%) (Auto) 82 % (31-73) Lymphocytes (%) (Auto) 11 % (24-48) Monocytes (%) (Auto) 7 % (0-9) Eosinophils (%) (Auto) 0 % (0-3) Basophils (%) (Auto) 0 % (0-3) Neutrophils # (Auto) 8.5 x10^3/uL (1.8-7.7) Lymphocytes # (Auto) 1.1 x10^3/uL (1.0-4.8) Monocytes # (Auto) 0.8 x10^3/uL (0.0-1.1) Eosinophils # (Auto) 0.0 x10^3/uL (0.0-0.7) Basophils # (Auto) 0.0 x10^3/uL (0.0-0.2) Lactic Acid Level 1.3 mmol/L (0.4-2.0) Troponin I High Sensitivity 26 ng/L (4-50) Procalcitonin 0.14 ng/mL (0.00-0.10) Glucose (Fingerstick) 64 mg/dL (70-99) Test 05/15/21 22:01 05/16/21 07:50 05/16/21 10:30 05/16/21 16:36 Glucose (Fingerstick) 113 mg/dL (70-99) 67 mg/dL (70-99) 183 mg/dL (70-99) Erythrocyte Sedimentation Rate 65 (0-25) Vitamin B12 Level 904 pg/mL (247-911) Thyroid Stimulating Hormone (TSH) 3.647 uIU/mL (0.358-3.74) Test 05/16/21 20:36 Glucose (Fingerstick) 211 mg/dL (70-99) Laboratory Tests Test 05/15/21 22:01 05/16/21 07:50 05/16/21 10:30 05/16/21 16:36 Glucose (Fingerstick) 113 mg/dL (70-99) 67 mg/dL (70-99) 183 mg/dL (70-99) Erythrocyte Sedimentation Rate 65 (0-25) Vitamin B12 Level 904 pg/mL (247-911) Thyroid Stimulating Hormone (TSH) 3.647 uIU/mL (0.358-3.74) Test 05/16/21 20:36 Glucose (Fingerstick) 211 mg/dL (70-99) Images Images CT head without contrast May 15, 2021 FINDINGS: There is no acute or subacute extra-axial or intraparenchymal hemorrhage. There is no mass effect or midline shift. There is no hydrocephalus. There are areas of decreased attenuation within the cerebral white matter, nonsp ecific and likely related to chronic small vessel disease. There are small chronic infarct within the left caudate nucleus and putamen. The visualized portions of the orbits, paranasal sinuses and mastoid air cells are unremarkable. No suspicious calvarial lesion is seen. IMPRESSION: 1. No acute intracranial finding. MRI is more sensitive for acute infarction. 2. Bilateral cerebral white matter changes, likely due to chronic small vessel disease. 3. Small chronic infarcts within the left basal ganglia. Chest x-ray May 15, 2021 FINDINGS: A frontal view of the chest is obtained. There is no infiltrate, pl eural effusion or pneumothorax. There is a stable prominent cardiac silhouette. IMPRESSION: No acute pulmonary finding. Assessment/Plan Assessment/Plan Patient is a pleasant 66-year-old woman who reports lupus was diagnosed at [facility] approximately 10 years ago. She never followed up. Blood work has been ordered to determine if there is evidence of an autoimmune disease. If this is the case then she will need to be referred to a well site drilling engineer. She will not go back to [facility]. She does report a previous history of stroke that caused her weakness. She cannot recall which side of her was weak. The current CT scan of the head did reveal evidence of some lacunar strokes on the left which could have provoked right hemiparesis. She states she had to learn to walk all over again and has never walked well. I am not certain her ga it disorder is new. She does appear weak on both sides which may be deconditioning. It sounds as if she is extremely sedentary. She never leaves her home. She has evidence of peripheral polyneuropathy likely from diabetes. I have put an order in for hemoglobin A1c. The most recent was performed in 2017 and was elevated to 9.5. She likely needs antibiotics for the skin lesion s. I do not see evidence clinically for a new stroke. It is never fair to check for dementia during an acute illness. She can follow-up as an outpatient with Dr. Stephens after she has recovered from this acute illness. She does not have a deficiency of B12 or thyroid. She will need physical therapy and likely inpatient rehabilitation. I appreciate being involved in her care. RONY CAVANAUGH MD May 16, 2021 21:30
[2021-05-16 23:00] VITALS: BP 159/59
[2021-05-17 03:00] VITALS: BP 147/58
[2021-05-17] MEDS: IV NORMAL SALINE 1000ML BAG 1,000 ML IV SCH ×2 (06:01→16:47)
[2021-05-17 06:16] LABS: BASO # 0.1 x10^3/uL (0.0-0.2); BASO % 1 % (0-3); EOS # 0.8 x10^3/uL (0.0-0.7); EOS % 11 % (0-3); HEMATOCRIT 35.8 % (36.0-47.0); HEMOGLOBIN 11.8 g/dL (12.0-15.5); LYMPH % 28 % (24-48); MEAN CORPUSCULAR HEMOGLOBIN 30 pg (25-35); MEAN CORPUSCULAR HGB CONC 33 g/dL (31-37); MEAN CORPUSCULAR VOLUME 91 fL (79-100); MONO # 0.9 x10^3/uL (0.0-1.1); MONO % 13 % (0-9); NEUT # 3.4 x10^3/uL (1.8-7.7); NEUT % 47 % (31-73); PLATELET COUNT 238 x10^3/uL (140-400); RED BLOOD COUNT 3.94 x10^6/uL (3.50-5.40); RED CELL DISTRIBUTION WIDTH 14.7 % (11.5-14.5); WHITE BLOOD COUNT 7.1 x10^3/uL (4.0-11.0)
[2021-05-17 06:39] LABS: CALCIUM 8.3 mg/dL (8.5-10.1); CREATININE 1.5 mg/dL (0.6-1.0); GFR 34.5; POTASSIUM 3.9 mmol/L (3.5-5.1)
[2021-05-17 07:00] VITALS: BP 206/80
[2021-05-17] MEDS: INSULIN LISPRO 300 UNITS/3 ML VIAL. SQ SCH ×3 (08:00→16:48)
[2021-05-17] MEDS: ENOXAPARIN 40 MG/0.4 ML SYRINGE. SQ SCH (09:14)
[2021-05-17] MEDS: CARVEDILOL 12.5 MG TABLET. PO SCH ×2 (09:14→16:47)
[2021-05-17] MEDS: DOXYCYCLINE HYCLATE 100 MG TABLET PO SCH ×2 (09:14→22:10)
[2021-05-17 11:00] VITALS: BP 173/63
[2021-05-17 11:13] LABS: ANTI-DS DNA <1 IU/mL (0-9)
[2021-05-17] MEDS ORDERED: LABETALOL 20 MG/4 ML DISP.SYRIN. IVP PRN (13:15)
--- NOTE | 2021-05-17 13:19 | PDOC ---
[employer] PROGRESS NOTE Date of Service DOS: DATE: 05/17/21 TIME: 13:09 History of Present Illness History of Present Illness 66-year-old female who presents with multiple complaints but mainly for lower extremity pain. She is a poor historian and is sent here by EMS from PCPs office. PCP was concerned for UTI. Patient states that she was diagnosed with lupus 10 years ago. According to the patient has been having in the past couple nights some shaking episodes and potential seizures. Patient is unable to recall these episodes. Patient's also reports worsening memory problems and forgetfulness for the past year. No reported fall, head injury reported. No reported syncope. She has some chronic urinary incontinence and urgency, unchanged currently. She reports that she is unable to walk, has not been on a walk for several days. She normally ambulates on her own, per her report but she has been lying in bed for the last several days. She has multiple scratch mckeon and wounds on her abdomen, back, neck and arms and legs, and she reports that she intentionally picks and scratches at these. She is unable to bathe herself, she is unable to reach her feet to groom her toenails, she is not able to change her clothing without help of her . She indicates that her does not feel that he is able to assist with ADLs. Of note, patient states that she has never taken steroids or Plaquenil for her lupus. She only complains of itchiness throughout her whole body and lower extremity pain. 05/17/2021 No acute events overnight. Patient seen examined bedside. AF and VSS. Wounds appear stable. Double-stranded DNA returned negative. Still pending DOMI test. Pending [facility] records for lupus diagnosis and whether she was on any maintenance medications. Patient is alert awake oriented x3. Patient will need more assistance with rehabilitation. PT OT recommended SNF. Patient's chart, labs, images were reviewed and discussed with RN Vitals/I&O Vitals/I&O: Vital Signs Date Time Temp Pulse Resp B/P (MAP) Pulse Ox O2 Delivery O2 Flow Rate FiO2 05/17/21 11:00 97.7 66 18 173/63 (99) 99 Room Air 97.7 I & O 05/16/21 05/16/21 05/17/21 15:00 23:00 07:00 Intake Total 480 ml 720 ml Output Total 300 ml Balance 480 ml 720 ml -300 ml Physical Exam General: Alert, Oriented X3, Cooperative Heart: Regular rate Lungs: Clear Extremities: No clubbing Skin: Other (Excoriations throughout extremities. Small punctate sized open lesions without any purulence or active bleeding.) Labs Labs: Laboratory Tests Test 05/16/21 13:10 05/16/21 16:36 05/16/21 20:36 05/17/21 06:05 Coronavirus (COVID-19)(PCR) Not detected (NOT DETECTD) Glucose (Fingerstick) 183 mg/dL (70-99) 211 mg/dL (70-99) White Blood Count 7.1 x10^3/uL (4.0-11.0) Red Blood Count 3.94 x10^6/uL (3.50-5.40) Hemoglobin 11.8 g/dL (12.0-15.5) Hematocrit 35.8 % (36.0-47.0) Mean Corpuscular Volume 91 fL (79-100) Mean Corpuscular Hemoglobin 30 pg (25-35) Mean Corpuscular Hemoglobin Concent 33 g/dL (31-37) Red Cell Distribution Width 14.7 % (11.5-14.5) Platelet Count 238 x10^3/uL (140-400) Neutrophils (%) (Auto) 47 % (31-73) Lymphocytes (%) (Auto) 28 % (24-48) Monocytes (%) (Auto) 13 % (0-9) Eosinophils (%) (Auto) 11 % (0-3) Basophils (%) (Auto) 1 % (0-3) Neutrophils # (Auto) 3.4 x10^3/uL (1.8-7.7) Lymphocytes # (Auto) 2.0 x10^3/uL (1.0-4.8) Monocytes # (Auto) 0.9 x10^3/uL (0.0-1.1) Eosinophils # (Auto) 0.8 x10^3/uL (0.0-0.7) Basophils # (Auto) 0.1 x10^3/uL (0.0-0.2) Sodium Level 143 mmol/L (136-145) Potassium Level 3.9 mmol/L (3.5-5.1) Chloride Level 106 mmol/L (98-107) Carbon Dioxide Level 27 mmol/L (21-32) Anion Gap 10 (6-14) Blood Urea Nitrogen 26 mg/dL (7-20) Creatinine 1.5 mg/dL (0.6-1.0) Estimated GFR (Cockcroft-Gault) 34.5 Glucose Level 140 mg/dL (70-99) Calcium Level 8.3 mg/dL (8.5-10.1) Phosphorus Level 3.0 mg/dL (2.6-4.7) Magnesium Level 2.0 mg/dL (1.8-2.4) Test 05/17/21 08:34 05/17/21 11:08 Glucose (Fingerstick) 122 mg/dL (70-99) 191 mg/dL (70-99) Assessment and Plan Assessmemt and Plan Problems Medical Problems: (1) Failure to thrive Status: Acute (2) Generalized weakness Status: Acute (3) Memory loss Status: Acute (4) Multiple wounds of skin Status: Acute (5) Unable to ambulate Status: Acute Comment Review of Relevant I have reviewed the following items yoanna (where applicable) has been applied. Medications: Current Medications Medications (Trade) Dose Ordered Sig/Sumanth Route PRN Reason Start Time Stop Time Status Last Admin Dose Admin Carvedilol (Coreg) 12.5 mg BIDWMEALS PO 05/16/21 17:00 05/17/21 09:14 Insulin Human Lispro (HumaLOG) 0-5 UNITS TIDWMEALS SQ 05/16/21 17:00 05/17/21 11:21 Doxycycline Hyclate (Vibra-Tab) 100 mg BID PO 05/17/21 09:00 05/24/21 08:59 05/17/21 09:14 Justifications for Admission Other Justification Altered mental status. RIVKA LUTHER MD May 17, 2021 13:18
[2021-05-17 15:00] VITALS: BP 117/73
--- NOTE | 2021-05-17 16:29 | NUR ---
SW following. Discussed with RN, pt from home with spouse, room air, ada diet. Therapy recommending home with home health, COVID-19 negative. Woundcare and Neurology following. SW will continue to follow.
[2021-05-17 19:00] VITALS: BP 157/52
[2021-05-17 20:11] LABS: ANA INTERP Negative (.)
[2021-05-17 23:00] VITALS: BP 108/54
[2021-05-18 01:09] LABS: HEMOGLOBIN A1C 6.4 % (4.8-5.6)
[2021-05-18 03:00] VITALS: BP 162/66
[2021-05-18] MEDS: IV NORMAL SALINE 1000ML BAG 1,000 ML IV SCH ×3 (04:14→21:45)
[2021-05-18 07:00] VITALS: BP 149/52
[2021-05-18] MEDS: INSULIN LISPRO 300 UNITS/3 ML VIAL. SQ SCH ×3 (08:00→17:00)
[2021-05-18] MEDS: CARVEDILOL 12.5 MG TABLET. PO SCH ×2 (09:04→17:00)
[2021-05-18] MEDS: DOXYCYCLINE HYCLATE 100 MG TABLET PO SCH ×2 (09:05→20:35)
[2021-05-18 10:59] LABS: CALCIUM 8.3 mg/dL (8.5-10.1); CREATININE 1.2 mg/dL (0.6-1.0); GFR 44.7; MAGNESIUM 1.8 mg/dL (1.8-2.4); POTASSIUM 4.2 mmol/L (3.5-5.1)
[2021-05-18 11:00] VITALS: BP 141/47
[2021-05-18 11:23] LABS: BASO % 1 % (0-3); EOS # 0.9 x10^3/uL (0.0-0.7); EOS % 15 % (0-3); HEMATOCRIT 33.1 % (36.0-47.0); HEMOGLOBIN 10.8 g/dL (12.0-15.5); LYMPH # 1.4 x10^3/uL (1.0-4.8); LYMPH % 23 % (24-48); MEAN CORPUSCULAR HEMOGLOBIN 30 pg (25-35); MEAN CORPUSCULAR HGB CONC 33 g/dL (31-37); MEAN CORPUSCULAR VOLUME 90 fL (79-100); MONO # 0.6 x10^3/uL (0.0-1.1); MONO % 10 % (0-9); NEUT # 3.1 x10^3/uL (1.8-7.7); NEUT % 51 % (31-73); PLATELET COUNT 218 x10^3/uL (140-400); RED BLOOD COUNT 3.66 x10^6/uL (3.50-5.40); RED CELL DISTRIBUTION WIDTH 14.6 % (11.5-14.5)
--- NOTE | 2021-05-18 11:45 | PDOC ---
[employer] PROGRESS NOTE Date of Service DOS: DATE: 05/18/21 TIME: 11:45 Chief Complaint Chief Complaint Acute encephalopathy, metabolic WHITLEY due to vasomotor nephropathy Multiple superficial skin lesions - seems to be chronic urticaria Symptomatic hypoglycemia -not checking glucose at home advised to cut back her glargine and sliding scale given prescription for glucometer. Given her concomitant carvedilol dosing likely masked hypoglycemic symptoms DM2 - add DPP-4. needs glucometer. A1c 6.4. May need to cut back insulin dosing given her hypoglycemia likely is having frequent bouts of hypoglycemia Right sided weakness - likely prior left lacunar basal ganglia infarct Peripheral neuropathy Onychomycosis - needs diabetic foot care referral, given podiatry referral History of hypertension Questionable history of lupus History of Present Illness History of Present Illness Ms Gomez is a 66-year-old female w/ PMHx prior CVA, DM2, HTN, ?lupus who presents with multiple complaints but mainly for lower extremity pain and confusion sent here by EMS from PCPs office. PCP was concerned for UTI, however not infected. Patient states that she was diagnosed with lupus 10 years ago. According to the patient has been having in the past couple nights some shaking episodes and potential seizures. Patient is unable to recall these episodes. Patient's also reports worsening memory problems and forge tfulness for the past year. No reported fall, head injury reported. No reported syncope. She has some chronic urinary incontinence and urgency, unchanged currently. She reports that she is unable to walk, has not been on a walk for several days. She normally ambulates on her own, per her report but she has been lying in bed for the last several days. She has multiple scratch mckeon and wounds on her abdomen, back, neck and arms and legs, and she reports that she intentionally picks and scratches at these. She is unable to bathe herself, she is unable to reach her feet to groom her toenails, she is not able to change her clothing without help of her . She indicates that her does not feel that he is able to assist with ADLs. CT head with chronic appearing basal ganglia infarcts. Of note, patient states that she has never taken steroids or Plaquenil for her lupus. She only complains of itchiness throughout her whole body and lower extremity pain. 05/17: No acute events overnight. Patient seen examined bedside. AF and VSS. Wounds appear stable. Double-stranded DNA returned negative. DOMI negative. TSH and B12 WNL. PT OT recommended home health. Seen by neurology in consultation. 05/18:CR 1.2, HbA1c returned at 6.4, Hb 10.8 WBC 6, DOMI negative double-stranded DNA negative. Started on montelukast and cetirizine for chronic urticaria. Advised to cut back her insulin and start checking her glucose at home likely with her carvedilol she has masked symptoms of hypoglycemia. Given her A1c bren pped from 9.5 to 6.4 can start to transition to oral hypoglycemics. Consults: Neurology - recommend outpatient follow up Vitals/I&O Vitals/I&O: Vital Signs Date Time Temp Pulse Resp B/P (MAP) Pulse Ox O2 Delivery O2 Flow Rate FiO2 05/18/21 11:00 98.1 63 18 141/47 (78) 93 Room Air 98.1 I & O 05/17/21 05/17/21 05/18/21 15:00 23:00 07:00 Intake Total 300 ml 260 ml Output Total 300 ml 200 ml Balance 300 ml -40 ml -200 ml Physical Exam General: Alert, Oriented X3, Cooperative Heart: Regular rate Lungs: Clear Extremities: No clubbing Skin: Other Labs Labs: Laboratory Tests Test 05/17/21 16:30 05/17/21 20:27 05/18/21 07:23 05/18/21 10:35 Glucose (Fingerstick) 169 mg/dL (70-99) 213 mg/dL (70-99) 148 mg/dL (70-99) White Blood Count 6.0 x10^3/uL (4.0-11.0) Red Blood Count 3.66 x10^6/uL (3.50-5.40) Hemoglobin 10.8 g/dL (12.0-15.5) Hematocrit 33.1 % (36.0-47.0) Mean Corpuscular Volume 90 fL (79-100) Mean Corpuscular Hemoglobin 30 pg (25-35) Mean Corpuscular Hemoglobin Concent 33 g/dL (31-37) Red Cell Distribution Width 14.6 % (11.5-14.5) Platelet Count 218 x10^3/uL (140-400) Neutrophils (%) (Auto) 51 % (31-73) Lymphocytes (%) (Auto) 23 % (24-48) Monocytes (%) (Auto) 10 % (0-9) Eosinophils (%) (Auto) 15 % (0-3) Basophils (%) (Auto) 1 % (0-3) Neutrophils # (Auto) 3.1 x10^3/uL (1.8-7.7) Lymphocytes # (Auto) 1.4 x10^3/uL (1.0-4.8) Monocytes # (Auto) 0.6 x10^3/uL (0.0-1.1) Eosinophils # (Auto) 0.9 x10^3/uL (0.0-0.7) Basophils # (Auto) 0.0 x10^3/uL (0.0-0.2) Sodium Level 142 mmol/L (136-145) Potassium Level 4.2 mmol/L (3.5-5.1) Chloride Level 106 mmol/L (98-107) Carbon Dioxide Level 29 mmol/L (21-32) Anion Gap 7 (6-14) Blood Urea Nitrogen 19 mg/dL (7-20) Creatinine 1.2 mg/dL (0.6-1.0) Estimated GFR (Cockcroft-Gault) 44.7 Glucose Level 194 mg/dL (70-99) Calcium Level 8.3 mg/dL (8.5-10.1) Magnesium Level 1.8 mg/dL (1.8-2.4) Test 05/18/21 11:38 Glucose (Fingerstick) 195 mg/dL (70-99) Assessment and Plan Assessmemt and Plan Problems Medical Problems: (1) Failure to thrive Status: Acute (2) Generalized weakness Status: Acute (3) Memory loss Status: Acute (4) Multiple wounds of skin Status: Acute (5) Unable to ambulate Status: Acute Comment Review of Relevant I have reviewed the following items yoanna (where applicable) has been applied. Medications: Current Medications Medications (Trade) Dose Ordered Sig/Sumanth Route PRN Reason Start Time Stop Time Status Last Admin Dose Admin Enoxaparin Sodium (Lovenox 60mg Syringe) 60 mg Q12HR SQ 05/17/21 21:00 05/18/21 09:04 Amlodipine Besylate (Norvasc) 5 mg QHS PO 05/17/21 13:30 05/17/21 22:10 Justifications for Admission Other Justification Altered mental status. RODDY BONILLA MD May 18, 2021 11:45
[2021-05-18] MEDS ORDERED: CETIRIZINE HCL 10 MG TABLET. PO SCH (13:00)
[2021-05-18] MEDS ORDERED: LINA5TAB PO (13:14)
[2021-05-18] MEDS ORDERED: INSU100V8 SQ (13:14)
[2021-05-18] MEDS ORDERED: CETI10TA16 PO (13:14)
[2021-05-18] MEDS ORDERED: INSU100C4 SQ (13:14)
[2021-05-18] MEDS ORDERED: MONT10TA49 PO (13:14)
--- NOTE | 2021-05-18 13:19 | SNU/HH DC ---
DISCHARGE WITH HOME HEALTH DISCHARGE INFORMATION: Discharge Date: May 18, 2021 Final Diagnosis: Problems Medical Problems: (1) Failure to thrive Status: Acute (2) Generalized weakness Status: Acute (3) Memory loss Status: Acute (4) Multiple wounds of skin Status: Acute (5) Unable to ambulate Status: Acute Condition on Discharge: Stable CODE STATUS: Code Status: Full HOME HEALTH: Face to Face: I certify this patient is under my care and that I, or a nurse practitioner or physician's assistant credit manager working with me, had a face to face encounter that meets the physician face to face encounter requirements with this patient on 05/18/2021. 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 For Eval/Treatment: Yes Physical Therapy For: Evalulation/Treatment Occupational Therapy For: Evaluation/Treatment Pt Meets Homebound Status: Fatigue w/ amb., Limited distance walking POST DISCHARGE ORDERS: Activity Instructions for Disc: Activity as tolerated Weight Bearing Status after Di: As tolerated DIET AFTER DISCHARGE: ADA Wound/Incision Care: Other, see below (A&D and zinc oxide to chronic urticarial wounds) CHECKS AFTER DISCHARGE: Checks after discharge: Check blood press - daily, Check blood sugar, ac/hs, Check your Temp as needed FOLLOW-UP: Additional Instructions: For diabetic foot care Dr. Brian Howe, Podiatry [facility] [address] [facility], [address] [address] For screening colonoscopy: [facility] [address] [place] [address] P: [phone] F: [id number] CERTIFICATION STATEMENT: Certification Statement: Certification Statement: Based on the above finding, I certify that this patient is confined to the home and needs intermittent [facility] care, physical therapy and/or speech therapy, or continues to need occupational therapy.~ This patient is under my care, and I have initiated the establishment of the plan of care.~ This patient will be followed by myself or a community physician who will periodically review the plan of care. Home Meds Active Scripts Cetirizine Hcl (CETIRIZINE HCL) 10 Mg Tablet, 10 MG PO DAILY for Chronic urticaria for 30 Days, #30 TAB 5 Refills Prov:RODDY BONILLA MD 05/18/21 Montelukast Sodium (MONTELUKAST SODIUM TABLET ) 10 Mg Tablet, 10 MG PO QHS for Chronic urticaria for 30 Days, #30 TAB 5 Refills Prov:RODDY BONILLA MD 05/18/21 Linagliptin (TRADJENTA) 5 Mg Tablet, 5 MG PO DAILY for TYPE 2 DIABETES for 30 Days, #30 TAB 5 Refills Prov:RODDY BONILLA MD 05/18/21 Insulin Glargine,Hum.rec.anlog (LANTUS) 100 Unit/1 Ml Vial, 8 UNIT SQ HS for DM2 for 30 Days, #1 VIAL 5 Refills Prov:RODDY BONILLA MD 05/18/21 Insulin Aspart (NOVOLOG) 100 Unit/1 Ml Cartridge, 0-9 UNIT SQ TIDWMEALS for DM2 for 30 Days, #1 EACH 5 Refills Prov:RODDY BONILLA MD 05/18/21 Reported Medications Carvedilol (CARVEDILOL ) 12.5 Mg Tablet, 1 TAB PO BID, #60 TAB 5 Refills 01/14/14 Discontinued Reported Medications Aspirin (ASPIRIN) 325 Mg Tablet, 1 TAB PO DAILY, #30 TAB 5 Refills 08/20/16 RODDY BONILLA MD May 18, 2021 13:19
--- NOTE | 2021-05-18 13:38 | PDOC3 ---
Discharge Summary Visit Information Date of Admission: May 15, 2021 Date of Discharge: May 18, 2021 Admitting Diagnosis: Acute encephalopathy Final Diagnosis Problems Medical Problems: (1) Failure to thrive Status: Acute (2) Generalized weakness Status: Acute (3) Memory loss Status: Acute (4) Multiple wounds of skin Status: Acute (5) Unable to ambulate Status: Acute Brief Hospital Course Allergies Allergies Coded Allergies Type Severity Reaction Last Updated Verified Sulfa (Sulfonamide Antibiotics) Allergy Severe Rash 08/22/16 Yes lisinopril Allergy Severe Anaphylaxis 05/16/21 Yes Iodinated Contrast Media Allergy Intermediate 01/14/14 Yes codeine Adverse Reaction Intermediate Nausea and Vomiting 08/22/16 Yes Vital Signs Vital Signs Date Time Temp Pulse Resp B/P (MAP) Pulse Ox O2 Delivery O2 Flow Rate FiO2 05/18/21 11:00 98.1 63 18 141/47 (78) 93 Room Air 98.1 Lab Results Laboratory Tests Test 05/16/21 15:05 05/16/21 16:36 05/16/21 20:36 05/17/21 06:05 Nasal Screen MRSA (PCR) Negative (NEGATIVE) Glucose (Fingerstick) 183 mg/dL (70-99) 211 mg/dL (70-99) White Blood Count 7.1 x10^3/uL (4.0-11.0) Red Blood Count 3.94 x10^6/uL (3.50-5.40) Hemoglobin 11.8 g/dL (12.0-15.5) Hematocrit 35.8 % (36.0-47.0) Mean Corpuscular Volume 91 fL (79-100) Mean Corpuscular Hemoglobin 30 pg (25-35) Mean Corpuscular Hemoglobin Concent 33 g/dL (31-37) Red Cell Distribution Width 14.7 % (11.5-14.5) Platelet Count 238 x10^3/uL (140-400) Neutrophils (%) (Auto) 47 % (31-73) Lymphocytes (%) (Auto) 28 % (24-48) Monocytes (%) (Auto) 13 % (0-9) Eosinophils (%) (Auto) 11 % (0-3) Basophils (%) (Auto) 1 % (0-3) Neutrophils # (Auto) 3.4 x10^3/uL (1.8-7.7) Lymphocytes # (Auto) 2.0 x10^3/uL (1.0-4.8) Monocytes # (Auto) 0.9 x10^3/uL (0.0-1.1) Eosinophils # (Auto) 0.8 x10^3/uL (0.0-0.7) Basophils # (Auto) 0.1 x10^3/uL (0.0-0.2) Sodium Level 143 mmol/L (136-145) Potassium Level 3.9 mmol/L (3.5-5.1) Chloride Level 106 mmol/L (98-107) Carbon Dioxide Level 27 mmol/L (21-32) Anion Gap 10 (6-14) Blood Urea Nitrogen 26 mg/dL (7-20) Creatinine 1.5 mg/dL (0.6-1.0) Estimated GFR (Cockcroft-Gault) 34.5 Glucose Level 140 mg/dL (70-99) Hemoglobin A1c 6.4 % (4.8-5.6) Calcium Level 8.3 mg/dL (8.5-10.1) Phosphorus Level 3.0 mg/dL (2.6-4.7) Magnesium Level 2.0 mg/dL (1.8-2.4) Test 05/17/21 08:34 05/17/21 11:08 05/17/21 16:30 05/17/21 20:27 Glucose (Fingerstick) 122 mg/dL (70-99) 191 mg/dL (70-99) 169 mg/dL (70-99) 213 mg/dL (70-99) Test 05/18/21 07:23 05/18/21 10:35 05/18/21 11:38 Glucose (Fingerstick) 148 mg/dL (70-99) 195 mg/dL (70-99) White Blood Count 6.0 x10^3/uL (4.0-11.0) Red Blood Count 3.66 x10^6/uL (3.50-5.40) Hemoglobin 10.8 g/dL (12.0-15.5) Hematocrit 33.1 % (36.0-47.0) Mean Corpuscular Volume 90 fL (79-100) Mean Corpuscular Hemoglobin 30 pg (25-35) Mean Corpuscular Hemoglobin Concent 33 g/dL (31-37) Red Cell Distribution Width 14.6 % (11.5-14.5) Platelet Count 218 x10^3/uL (140-400) Neutrophils (%) (Auto) 51 % (31-73) Lymphocytes (%) (Auto) 23 % (24-48) Monocytes (%) (Auto) 10 % (0-9) Eosinophils (%) (Auto) 15 % (0-3) Basophils (%) (Auto) 1 % (0-3) Neutrophils # (Auto) 3.1 x10^3/uL (1.8-7.7) Lymphocytes # (Auto) 1.4 x10^3/uL (1.0-4.8) Monocytes # (Auto) 0.6 x10^3/uL (0.0-1.1) Eosinophils # (Auto) 0.9 x10^3/uL (0.0-0.7) Basophils # (Auto) 0.0 x10^3/uL (0.0-0.2) Sodium Level 142 mmol/L (136-145) Potassium Level 4.2 mmol/L (3.5-5.1) Chloride Level 106 mmol/L (98-107) Carbon Dioxide Level 29 mmol/L (21-32) Anion Gap 7 (6-14) Blood Urea Nitrogen 19 mg/dL (7-20) Creatinine 1.2 mg/dL (0.6-1.0) Estimated GFR (Cockcroft-Gault) 44.7 Glucose Level 194 mg/dL (70-99) Calcium Level 8.3 mg/dL (8.5-10.1) Magnesium Level 1.8 mg/dL (1.8-2.4) Laboratory Tests Test 05/17/21 16:30 05/17/21 20:27 05/18/21 07:23 05/18/21 10:35 Glucose (Fingerstick) 169 mg/dL (70-99) 213 mg/dL (70-99) 148 mg/dL (70-99) White Blood Count 6.0 x10^3/uL (4.0-11.0) Red Blood Count 3.66 x10^6/uL (3.50-5.40) Hemoglobin 10.8 g/dL (12.0-15.5) Hematocrit 33.1 % (36.0-47.0) Mean Corpuscular Volume 90 fL (79-100) Mean Corpuscular Hemoglobin 30 pg (25-35) Mean Corpuscular Hemoglobin Concent 33 g/dL (31-37) Red Cell Distribution Width 14.6 % (11.5-14.5) Platelet Count 218 x10^3/uL (140-400) Neutrophils (%) (Auto) 51 % (31-73) Lymphocytes (%) (Auto) 23 % (24-48) Monocytes (%) (Auto) 10 % (0-9) Eosinophils (%) (Auto) 15 % (0-3) Basophils (%) (Auto) 1 % (0-3) Neutrophils # (Auto) 3.1 x10^3/uL (1.8-7.7) Lymphocytes # (Auto) 1.4 x10^3/uL (1.0-4.8) Monocytes # (Auto) 0.6 x10^3/uL (0.0-1.1) Eosinophils # (Auto) 0.9 x10^3/uL (0.0-0.7) Basophils # (Auto) 0.0 x10^3/uL (0.0-0.2) Sodium Level 142 mmol/L (136-145) Potassium Level 4.2 mmol/L (3.5-5.1) Chloride Level 106 mmol/L (98-107) Carbon Dioxide Level 29 mmol/L (21-32) Anion Gap 7 (6-14) Blood Urea Nitrogen 19 mg/dL (7-20) Creatinine 1.2 mg/dL (0.6-1.0) Estimated GFR (Cockcroft-Gault) 44.7 Glucose Level 194 mg/dL (70-99) Calcium Level 8.3 mg/dL (8.5-10.1) Magnesium Level 1.8 mg/dL (1.8-2.4) Test 05/18/21 11:38 Glucose (Fingerstick) 195 mg/dL (70-99) Brief Hospital Course Ms Gomez is a 66-year-old female w/ PMHx prior CVA, DM2, HTN, ?lupus who presents with multiple complaints but mainly for lower extremity pain and confusion sent here by EMS from PCPs office. PCP was concerned for UTI, however not infected. Patient states that she was diagnosed with lupus 10 years ago. According to the patient has been having in the past couple nights some shaking episodes and potential seizures. Patient is unable to recall these episodes. Patient's also reports worsening memory problems and forgetfulness for the past year. No reported fall, head injury reported. No reported syncope. She has some chronic urinary incontinence and urgency, unchanged currently. She reports that she is unable to walk, has not been on a walk for several days. She normally ambulates on her own, per her report but she has been lying in bed for the last several days. She has multiple scratch mckeon and wounds on her abdomen, back, neck and arms and legs, and she reports that she intentionally picks and scratches at these. She is unable to bathe herself, she is unable to reach her feet to groom her toenails, she is not able to change her clothing without help of her . She indicates that her does not feel that he is able to assist with ADLs. CT head with chronic appearing basal ganglia infarcts. Of note, patient states that she has never taken steroids or Plaquenil for her lupus. She only complains of itchiness throughout her whole body and lower extremity pain. 05/17: No acute events overnight. Patient seen examined bedside. AF and VSS. Wounds appear stable. Double-stranded DNA returned negative. DOMI negative. TSH and B12 WNL. PT OT recommended home health. Seen by neurology in consultation. 05/18:CR 1.2, HbA1c returned at 6.4, Hb 10.8 WBC 6, DOMI negative double-stranded DNA negative. Started on montelukast and cetirizine for chronic urticaria. Advised to cut back her insulin and start checking her glucose at home likely with her carvedilol she has masked symptoms of hypoglycemia. Given her A1c dropped from 9.5 to 6.4 can start to transition to oral hypoglycemics. Consults: Neurology - recommend outpatient follow up Problem list: Acute encephalopathy, metabolic WHITLEY due to vasomotor nephropathy Multiple superficial skin lesions - seems to be chronic urticaria Symptomatic hypoglycemia -not checking glucose at home advised to cut back her glargine and sliding scale given prescription for glucometer. Given her concomitant carvedilol dosing likely masked hypoglycemic symptoms DM2 - add DPP-4. needs glucometer. A1c 6.4. May need to cut back insulin dosing given her hypoglycemia likely is having frequent bouts of hypoglycemia Right sided weakness - likely prior left lacunar basal ganglia infarct Peripheral neuropathy Onychomycosis - needs diabetic foot care referral, given podiatry referral History of hypertension Questionable history of lupus Morbid obesity - counseled on lifestyle modification Smoker - counseled on cessation Greater than 30 minutes spent on d/c home with home health Discharge Information Condition at Discharge: Stable Follow Up: Weeks (1) Disposition/Orders: D/C to Home w/ HH Scheduled Carvedilol (Carvedilol ) 12.5 Mg Tablet, 1 TAB PO BID, #60 Ref 5 (Reported) Entered as Reported by: DURGA STALEY on 01/14/14 [id number] Last Action: Continued on 05/16/21 1401 by RIVKA LUTHER MD Cetirizine Hcl (Cetirizine Hcl) 10 Mg Tablet, 10 MG PO DAILY for Chronic urticaria for 30 Days, #30 Ref 5 Prescribed by: RODDY BONILLA MD on 05/18/21 1314 Insulin Aspart (Novolog) 100 Unit/1 Ml Cartridge, 0-9 UNIT SQ TIDWMEALS for DM2 for 30 Days, #1 Ref 5 Prescribed by: RODDY BONILLA MD on 05/18/21 1314 Insulin Glargine,Hum.rec.anlog (Lantus) 100 Unit/1 Ml Vial, 8 UNIT SQ HS for DM2 for 30 Days, #1 Ref 5 Prescribed by: RODDY BONILLA MD on 05/18/21 1314 Linagliptin (Tradjenta) 5 Mg Tablet, 5 MG PO DAILY for TYPE 2 DIABETES for 30 Days, #30 Ref 5 Prescribed by: RODDY BONILLA MD on 05/18/21 1314 Montelukast Sodium (Montelukast Sodium Tablet ) 10 Mg Tablet, 10 MG PO QHS for Chronic urticaria for 30 Days, #30 Ref 5 Prescribed by: RODDY BONILLA MD on 05/18/21 1314 Discontinued Medications Aspirin (Aspirin) 325 Mg Tablet, 1 TAB PO DAILY, #30 Ref 5 (Reported) Entered as Reported by: Tomasa Bhardwaj on 08/20/16 0748 Last Action: Discontinued on 05/16/21 0944 by KWESI Marcusicifation of Admission Dx: Justifications for Admission: Justification of Admission Dx: Yes RODDY BONILLA MD May 18, 2021 13:38
[2021-05-18] MEDS: MONTELUKAST SODIUM 10 MG TABLET. PO SCH ×2 (13:41→20:30)
[2021-05-18 15:00] VITALS: BP 161/53
[2021-05-18 23:15] VITALS: BP 171/64
--- NOTE | 2021-05-18 23:35 | NUR ---
Pt. dc'd to home via cab with all belongings. Pt's notified of departure.
== END 2021-05-18 23:35 | disposition home health service (06) | DRG 682 ==
LOC: ER 14:49 → ED HOLD 19:43 → 5 SOUTH 20:35
PROVIDERS: ADMIT Internal Medicine; ATTEND Internal Medicine
DX: N17.0 Acute kidney failure with tubular necrosis (principal); G93.41 Metabolic encephalopathy; Z68.43 Body mass index [BMI] 50.0-59.9, adult; B35.1 Tinea unguium; E11.42 Type 2 diabetes mellitus with diabetic polyneuropathy; E11.649 Type 2 diabetes mellitus with hypoglycemia without coma; E66.01 Morbid (severe) obesity due to excess calories; F17.200 Nicotine dependence, unspecified, uncomplicated; I11.0 Hypertensive heart disease with heart failure; I25.10 Atherosclerotic heart disease of native coronary artery without angina pectoris; I50.9 Heart failure, unspecified; L50.9 Urticaria, unspecified; N39.41 Urge incontinence; R62.7 Adult failure to thrive; Z82.3 Family history of stroke; Z86.73 Personal history of transient ischemic attack (TIA), and cerebral infarction without residual deficits; Z90.710 Acquired absence of both cervix and uterus; Z71.6 Tobacco abuse counseling
CPT/HCPCS: 36415; 70450; 71045; 80048; 80053; 81001; 82550; 82607; 82962; 83036; 83605; 83735; 83880; 84100; 84145; 84443; 84484; 85025; 85651; 86038; 86255; 87040; 87641; 93005; 93970; 96360; 96361; J1650; J1815; J7030; U0003; 97535-GO; 99285-25; G0378; Q0163